=== PATIENT | female | born 1970 | race Caucasian/White ===

== ENCOUNTER 2018-12-18 20:38 | Emergency (ER) | payer BC, SELFPAY ==
[2018-12-18 20:40] VITALS: BP 152/84; PULSE 89; RESP 17; TEMP 37.1; O2SAT 99; BMI 25.3
[2018-12-18 21:07] LABS: Absolute Lymphocyte Count 2.25 X10^3/ul (0.83-4.51); Absolute Neutrophil Count 4.6 X10^3/uL (2.0-7.7); Basophil# 0.03 X10^3/uL; Basophil% 0.4 % (0-1); Eosinophil# 0.03 X10^3/uL; Eosinophils% 0.4 % (0-5); Hemoglobin 14.5 g/dl (12.0-15.0); Lymphocyte # 2.25 X10^3/ul (4.0); Lymphocyte % 30.6 % (19-41); Mean Corp Hgb Conc 33.7 g/gl (32-36); Mean Corpuscular Hgb 31.9 pg (27.0-32.0); Mean Corpuscular Volume 94.7 fL (81-99); Mean Platelet Vol. 9.7 fl (6.2-12.0); Monocyte# 0.44 X10^3/uL; Neutrophil # 4.58 X10^3/uL (2.7-7.7); Neutrophil % 62.3 % (47-70); POSITIVE COUNT NO; POSITIVE DIFFERENTIAL NO; POSITIVE MORPHOLOGY NO; Platelet Count 245 K/mm3 (150-450); RBC Distribution Width CV 12.2 % (11.6-14.6); RBC Distribution Width SD 41.8 fl (35.1-43.9); Red Blood Count 4.54 M/mm3 (4.2-5.4); White Blood Count 7.4 K/mm3 (4.4-11.0)
[2018-12-18 21:16] LABS: Anion Gap 9 (5-15); BUN 6 mg/dL (7-18); BUN/Creat Ratio 7.7 RATIO (10-20); Calcium,Total 8.5 mg/dL (8.5-10.1); Chloride 110 mmol/L (98-107); Creatinine, Serum 0.78 mg/dL (0.55-1.02); EST Glomerular Filtration Rate 83 mL/min (>60); Est Glom Filt Rate - Afr Amer 100 mL/min (>60); Estimated Creatinine Clearance 78.51 ml/min; Glucose 74 mg/dL (74-106); Potassium 3.6 mmol/L (3.5-5.1); Sodium Level 141 mmol/L (136-145)
[2018-12-18 21:23] LABS: Pregnancy, Serum, hCG Quali. NEGATIVE Negative (0-9 Nonpreg)
[2018-12-18 21:23] LABS: Amphetamine Urine VISTA NEGATIVE (<1000 ng/mL); Barbiturate Urine VISTA NEGATIVE (< 200 ng/mL); Benzodiazepine Urine VISTA NEGATIVE (< 200 ng/mL); Cocaine Urine VISTA NEGATIVE (< 300 ng/mL); Ecstacy Urine VISTA NEGATIVE (< 500 ng/mL); Methadone Urine VISTA NEGATIVE (< 300 ng/mL); PCP Urine VISTA NEGATIVE (< 25 ng/mL); THC Urine VISTA NEGATIVE (< 50 ng/mL); Vista UDS pH Range 6
[2018-12-18] MEDS: Acetaminophen 500 MG Tablet 1000 MG PO (21:34)
--- NOTE | 2018-12-18 21:44 | ED.RN ---
EARNESTINE FROM SOCIAL WORK IS EVALUATING THIS PT NOW.
[2018-12-18 21:51] VITALS: RESP 16
--- NOTE | 2018-12-18 21:56 | CM.ED ---
Social Work Note Discussed case with Tamy from crisis. Pt was seen in community, but there were concerns of intoxication. Pt's alcohol level was low. Pt denies SI or HI, plan or intent to both Tamy and physician. Continues to deny to this pattern chart writer and makes comment that I am here because I was hesitant with my answer. Inquire if pt is having thoughts of killing herself and she states no. Inquire if she has a plan, or had a plan earlier, and she states no. Denies having access to firearms. Recently was prescribed Zoloft by her PCP in [place] and has approximately 1/2 of a bottle. Denies that she would take the pills. States that she feels she can keep herself safe until a follow-up appointment tomorrow. Pt has access to transportation and works at the [employer]. Discussed with Tamy. Tamy contacts Michelle Bernal to run case by. Kathy with [facility] states that if the pt is denying SI they cannot accept and recommends PHP. Discuss PHP program with pt and she is agreeable to an afternoon appointment. Inform that [facility] will contact her in the morning and that if she does not answer the police will be sent out for a wellness check. Inform also if she does not go to her 1500 appointment with [facility] there will be another wellness check. Pt expresses understanding. Write down time and provide with information for appointment. Discussed with Tamy and physician who are both in agreement. Referral form for [facility] faxed for follow-up. PLAN:Follow-up with [facility] at 1500 on 12/19. KENNEDY Romero, CARISSA
--- NOTE | 2018-12-18 22:19 | ED.VISSUMM ---
- ER Visit Summary Date of Service: 12/18/18 Chief Complaint: Depression History of Present Illness: The patient is a 48 F who is undergoing a divorce. She is been from her since September. Her children are poorly do not want to see her and spend time with her. She got upset today when she confronted her 17-year-old son. Her called police after the patient made the statement that she could not imagine her life without her children. Counseling center staff were called to the scene and spent time evaluating her there. They did smell alcohol and were concerned about leaving her alone not knowing her level of intoxication. Physical Examination: Vital signs are gross unremarkable. Patient sitting upright in bed. She is intermittently tearful. She makes poor eye contact. Heart is regular rate and rhythm. Lung sounds are clear. Abdomen is soft and nontender. Psychiatric evaluation reveals tearfulness and depressed affect. She denies suicidal ideations or plan to me. She states that her statement that she cannot imagine living without her children was more in lines of she thought she would have a life with her children as opposed to she was going to kill herself. Test Results: CBC and chemistry studies unremarkable. Tox screen and EtOH unremarkable. Alcohol level returns at 9. Emergency Department Course and Treatment: Patient has been seen both by crisis as well as social work. Patient continues to deny suicidal ideation. Counseling center will call her to do safety checks and patient has an appointment tomorrow with behavioral health. Patient has been seeing a primary care physician at [place] who has started the patient on medication for depression and anxiety. Treatment Plan: [] Disposition: Discharge Impression: Depression This note was generated with [employer] dictation software. It may contain incorrect words, spelling, and punctuation that were not noted in review of the chart prior to signing ED Disposition - Plan for ED Patient: Referrals: Vance Elias NP-C [Primary Care Provider] -
--- NOTE | 2018-12-18 22:22 | ED.DCSUM_ITS ---
- ER Visit Summary Date of Service: 12/18/18 Chief Complaint: Depression History of Present Illness: The patient is a 48 F who is undergoing a divorce. She is been from her since September. Her children are poorly do not want to see her and spend time with her. She got upset today when she confronted her 17-year-old son. Her called police after the patient made the statement that she could not imagine her life without her children. Counseling center staff were called to the scene and spent time evaluating her there. They did smell alcohol and were concerned about leaving her alone not knowing her level of intoxication. Physical Examination: Vital signs are gross unremarkable. Patient sitting upright in bed. She is intermittently tearful. She makes poor eye contact. Heart is regular rate and rhythm. Lung sounds are clear. Abdomen is soft and nontender. Psychiatric evaluation reveals tearfulness and depressed affect. She denies suicidal ideations or plan to me. She states that her statement that she cannot imagine living without her children was more in lines of she thought she would have a life with her children as opposed to she was going to kill herself. Test Results: CBC and chemistry studies unremarkable. Tox screen and EtOH unremarkable. Alcohol level returns at 9. Emergency Department Course and Treatment: Patient has been seen both by crisis as well as social work. Patient continues to deny suicidal ideation. Counseling center will call her to do safety checks and patient has an appointment tomorrow with behavioral health. Patient has been seeing a primary care physician at [place] who has started the patient on medication for depression and anxiety. Treatment Plan: [] Disposition: Discharge Impression: Depression This note was generated with [employer] dictation software. It may contain incorrect words, spelling, and punctuation that were not noted in review of the chart prior to signing ED Disposition - Plan for ED Patient: Referrals: Vance Elias NP-C [Primary Care Provider] -
--- NOTE | 2018-12-18 22:22 | ED.DEP ---
ED Disposition - Plan for ED Patient: Disposition: Home or Assisted Living Instructions: ED Depression Referrals: Vance Elias NP-C [Primary Care Provider] - As soon as possible Behavioral,Health [facility] [GROUP OF PHYSICIANS] - Keep [facility] appointment Counseling,Center [GROUP OF PHYSICIANS] -
[2018-12-18] MEDS: Ketorolac 60 MG/2 ML Vial IM (22:45)
[2018-12-18] MEDS: DiphenhydrAMINE 50 MG/ML Syringe IM (22:48)
[2018-12-18] MEDS: Metoclopramide 10 MG/2 ML Vial IM (22:50)
[2018-12-18 23:06] VITALS: BP 133/77; PULSE 84; RESP 16; O2SAT 99
== END 2018-12-18 23:19 | disposition home or self-care (01) ==
PROVIDERS: Emergency Provider Emergency Medicine; Family Provider Nurse Practitioner Primary Care; PCP Nurse Practitioner Primary Care
DX: F32.9 Major depressive disorder, single episode, unspecified (principal); F41.9 Anxiety disorder, unspecified; Z79.899 Other long term (current) drug therapy
CPT/HCPCS: 80048; 80307; 80320; 84703; 85025; 96372; 99285; G0480